=== PATIENT | male | born 1955 | race African-American/Black ===

== ENCOUNTER 2023-02-18 15:40 | Emergency (ER) | payer OTHER, MEDICAID ==
[~2023-02-18] VITALS: Ht 188 cm; Wt 132.0 kg
[2023-02-18 16:27] VITALS: O2SAT 99
[2023-02-18] MEDS ORDERED: KETOROLAC 60MG/2ML VIAL IM ONE (20:15)
[2023-02-18] MEDS ORDERED: INDO50CA98 MT (20:17)
[2023-02-18] MEDS ORDERED: COLC0.6C3 MT (20:17)
[2023-02-18 20:53] VITALS: BP 165/70
[2023-02-18 20:54] VITALS: PULSE 75; RESP 18; TEMP 99
== END 2023-02-18 20:57 | disposition home or self-care (01) ==
LOC: ER 15:40
DX: M10.9 Gout, unspecified (principal)
CPT/HCPCS: 99283; 96372; J1885

== ENCOUNTER 2023-09-28 06:50 | Emergency (ER) | payer OTHER, MEDICAID ==
[~2023-09-28] VITALS: Ht 185.4 cm; Wt 126.0 kg
[~2023-09-28 06:50] MED LIST: COLC0.6C3 MT; INDO50CA98 MT
[2023-09-28 07:04] VITALS: O2SAT 98
[2023-09-28] MEDS ORDERED: SULF1TAB48 MT (09:58)
[2023-09-28] MEDS ORDERED: TOPUD MT (09:58)
[2023-09-28] MEDS ORDERED: IBUP-1525 MT (09:58)
[2023-09-28 10:12] VITALS: BP 140/74; PULSE 73; RESP 18; TEMP 98.4
== END 2023-09-28 10:13 | disposition home or self-care (01) ==
LOC: ER 06:50
DX: I83.029 Varicose veins of left lower extremity with ulcer of unspecified site (principal); I10 Essential (primary) hypertension; Z85.9 Personal history of malignant neoplasm, unspecified; Z98.890 Other specified postprocedural states; Z88.8 Allergy status to other drugs, medicaments and biological substances
CPT/HCPCS: 99283

== ENCOUNTER 2024-08-08 10:59 | Emergency (ER) | payer MEDICARE, MEDICAID ==
[~2024-08-08] VITALS: Ht 188 cm; Wt 110.0 kg
[~2024-08-08 10:59] MED LIST changes: +IBUP-1525 MT; +SULF1TAB48 MT; +TOPUD MT
[2024-08-08 11:03] VITALS: O2SAT 100
[2024-08-08 11:18] VITALS: BP 157/97; PULSE 98; RESP 16; TEMP 98.3; O2SAT 87
[2024-08-08] MEDS ORDERED: SULF1TAB48 MT (16:30)
[2024-08-08] MEDS ORDERED: ACET-2708 MT (16:30)
[2024-08-08] MEDS: ACETAMINOPHEN 325MG TABLET PO ONE (16:59)
== END 2024-08-08 13:26 | disposition home or self-care (01) ==
LOC: ER 10:59
DX: S52.591A Other fractures of lower end of right radius, initial encounter for closed fracture (principal); I10 Essential (primary) hypertension; Z88.8 Allergy status to other drugs, medicaments and biological substances; Z79.899 Other long term (current) drug therapy; X58.XXXA Exposure to other specified factors, initial encounter; Y93.89 Activity, other specified; Y92.89 Other specified places as the place of occurrence of the external cause; Y99.8 Other external cause status
CPT/HCPCS: 29125; 73110; 73130; 99284